=== PATIENT | female | born 1990 | race African-American/Black ===

== ENCOUNTER 2016-10-16 06:42 | Emergency (ER) | payer OTHER ==
[~2016-10-16] VITALS: Ht 167.6 cm; Wt 136.4 kg
[~2016-10-16 06:42] MED LIST: ADVAIR 250/501 DISK IH; ALBUTEROL2.5 MG/3 M IH; AMOXICILLIN875 MG PO; ANAPROX DS550 M1 PO; ANTI-ITCH28.4 GM TP; ATARAX,VISTARIL25 MG PO; ATARAX,VISTARIL50 MG PO; BACTRIM,SEPT1 TABLET PO; CIPRO500 MG PO; CITRATE OF MAG296 ML PO; COLACE100 MG PO; DELTASONE20 M1 PO; DIFLUCAN150 MG PO; DILAUDID2 MG PO; DOXYCYCLINE HY100 MG PO; FLAGYL500 MG PO; FLEXERIL10 MG PO; FLONASE16 G1 BOTH NARES; FLUTICASONE P15.8 ML BOTH NARES; GUAIFENESIN600 MG PO; HYDROCODON-ACE1 EAC7 PO; MOBIC15 MG PO; MOTRIN600 MG PO; MOTRIN800 MG PO; NAPROSYN500 MG PO; NAPROXEN500 MG PO; PEN-VEE K,VEET500 MG PO; PREDNISONE10 MG PO; PREDNISONE20 MG PO; PRILOSEC40 MG PO; PROAIR RESPICL90 MCG IH; PROVENTIL,2.5 MG/3 M IH; ROBITUSSIN AC,T10 ML PO; TRAMADOL HCL50 MG PO; ULTRAM50 MG PO; VENTOLIN HFA18 GM IH; VICODIN,LORT1 TABLET PO; ZITHROMAX Z-PA250 MG PO; ZITHROMAX250 MG PO; ZOFRAN ODT4 MG PO; ZOFRAN4 MG PO
[2016-10-16 08:29] LABS: ADD MIUA? YES; BILIRUBIN NEGATIVE; BLOOD NEGATIVE; COLOR YELLOW ((YELLOW)); GLUCOSE (STRIP) NEGATIVE; KETONES NEGATIVE; LEUKOCYTES NEGATIVE; NITRITE NEGATIVE; PROTEIN (STRIP) NEGATIVE; SPECIFIC GRAVITY 1.015 (1.000-1.030); UROBILINOGEN 0.2 MG/DL (0.2-1.0)
[2016-10-16 08:30] LABS: MCH 28.9 PG (29.0-34.0); MCHC 33.7 G/DL (30.0-36.0); MCV 85.8 FL (83-99); MEAN PLAT.VOLUME 10.4 uM^3 (9.5-12.4); PLATELET COUNT 226 K/uL (156-360); RBC DIS.WIDTH-CV 15.3 % (11.8-14.6); RBC DIS.WIDTH-SD 47.4 % (39-53); RED BLOOD COUNT 4.43 M/uL (3.80-5.20); WHITE BLOOD COUNT 7.4 K/uL (4.1-10.2)
[2016-10-16 08:34] LABS: BACTERIA NONE SEEN /HPF; EPITHELIAL CELLS 1+ /HPF; MUCUS TRACE /LPF; RED BLOOD CELLS 0-5 /HPF (0-5); WHITE BLOOD CELLS 0-5 /HPF (0-5)
[2016-10-16 08:59] LABS: ANION GAP 7 MEQ/L (2-14); CHLORIDE 105 MEQ/L (99-109); POTASSIUM 3.7 MEQ/L (3.7-5.4); SAMPLE HEMOLYSIS CHECK 0; SAMPLE ICTERIC CHECK 0; SAMPLE LIPEMIA CHECK 0; SODIUM 140 MEQ/L (136-147); TOTAL BILIRUBIN 0.2 MG/DL (0.0-1.0)
[2016-10-16 09:04] LABS: ALKALINE PHOSPHATASE 63 IU/L (3-129); GFR ESTIMATE (CALCULATED) > 59 mL/min/; GLUCOSE 93 mg/dL (70-99); LIPASE 36 U/L (1.0-51.0); UREA NITROGEN (BUN) 9 mg/dL (9-23)
[2016-10-16 09:08] LABS: QUANTITATIVE HCG < 4.0 MIU/ML
[2016-10-16] MEDS ORDERED: NAPROSYN500 MG PO (10:46)
[2016-10-16 10:57] VITALS: BP 123/76
[2016-10-19 12:16] LABS: CHLAMYDIA TRACHOMATIS NEGATIVE; NEISSERIA GONORRHOEAE NEGATIVE
== END 2016-10-16 11:14 | disposition home or self-care (01) ==
LOC: EME 06:42
PROVIDERS: Physician Assistant Medical
DX: R10.9 Unspecified abdominal pain (principal); R10.2 Pelvic and perineal pain; J45.909 Unspecified asthma, uncomplicated; F17.200 Nicotine dependence, unspecified, uncomplicated
CPT/HCPCS: 76856; 80053; 81003; 83690; 84702; 85027; 87210; 87491; 87591; 99281; 99284; J1885

== ENCOUNTER 2017-03-14 09:43 | Emergency (ER) | payer OTHER ==
[~2017-03-14] VITALS: Ht 167.6 cm; Wt 132.7 kg
[2017-03-14 10:26] LABS: ADD MIUA? YES; BILIRUBIN NEGATIVE; BLOOD SMALL; COLOR YELLOW ((YELLOW)); GLUCOSE (STRIP) NEGATIVE; KETONES NEGATIVE; LEUKOCYTES TRACE; NITRITE NEGATIVE; PROTEIN (STRIP) 30; SPECIFIC GRAVITY 1.012 (1.000-1.030); UROBILINOGEN 0.2 MG/DL (0.2-1.0)
[2017-03-14 10:32] LABS: BACTERIA RARE /HPF; EPITHELIAL CELLS 1+ /HPF; MUCUS TRACE /LPF; WHITE BLOOD CELLS 0-5 /HPF (0-5)
[2017-03-14 10:58] LABS: HEMATOCRIT 40.5 % (36.0-46.0); MCH 28.8 PG (29.0-34.0); MCHC 33.1 G/DL (30.0-36.0); MCV 87.1 FL (83-99); MEAN PLAT.VOLUME 10.5 uM^3 (9.5-12.4); PLATELET COUNT 240 K/uL (156-360); RBC DIS.WIDTH-CV 14.4 % (11.8-14.6); RED BLOOD COUNT 4.65 M/uL (3.80-5.20); WHITE BLOOD COUNT 9.3 K/uL (4.1-10.2)
[2017-03-14 11:10] LABS: CHLORIDE 103 mEq/L (99-109); POTASSIUM 3.6 mEq/L (3.7-5.4); SODIUM 135 mEq/L (136-147)
[2017-03-14 11:12] LABS: GLUCOSE 150 mg/dL (70-99)
[2017-03-14 11:13] LABS: ANION GAP 10 MEQ/L (2-14)
[2017-03-14 11:16] LABS: GFR ESTIMATE (CALCULATED) > 59 mL/min/
[2017-03-14 11:17] LABS: UREA NITROGEN (BUN) 6 mg/dL (9-23)
[2017-03-14 11:25] LABS: QUANTITATIVE HCG < 4.0 MIU/ML
[2017-03-14] MEDS ORDERED: DELTASONE20 M1 PO (11:34)
[2017-03-14] MEDS ORDERED: BACTRIM,SEPT1 TABLET PO (11:34)
[2017-03-14] MEDS ORDERED: VENTOLIN HFA18 GM IH (11:34)
[2017-03-14 11:48] VITALS: BP 145/115
== END 2017-03-14 11:50 | disposition home or self-care (01) ==
LOC: EME 09:43
PROVIDERS: Nurse Practitioner Family
DX: N39.0 Urinary tract infection, site not specified (principal); J45.901 Unspecified asthma with (acute) exacerbation; F17.200 Nicotine dependence, unspecified, uncomplicated
CPT/HCPCS: 71020; 80048; 81003; 84702; 85027; 93005; 94640; 99281; 99285; J7512

== ENCOUNTER 2017-03-19 11:16 | Emergency (ER) | payer OTHER ==
[~2017-03-19] VITALS: Ht 167.6 cm; Wt 133.8 kg
[2017-03-19 12:23] LABS: ADD MIUA? NO; BILIRUBIN NEGATIVE; BLOOD NEGATIVE; COLOR YELLOW ((YELLOW)); GLUCOSE (STRIP) NEGATIVE; KETONES NEGATIVE; LEUKOCYTES NEGATIVE; NITRITE NEGATIVE; PROTEIN (STRIP) NEGATIVE; SPECIFIC GRAVITY 1.015 (1.000-1.030); UCUL ADDED? NO; UROBILINOGEN 0.2 MG/DL (0.2-1.0)
[2017-03-19 12:35] LABS: HEMATOCRIT 41.7 % (36.0-46.0); MCH 29.2 PG (29.0-34.0); MCHC 33.6 G/DL (30.0-36.0); MCV 87.1 FL (83-99); MEAN PLAT.VOLUME 10.3 uM^3 (9.5-12.4); NRBC (%) 0.1 /100 WBC (0-0); PLATELET COUNT 250 K/uL (156-360); RBC DIS.WIDTH-CV 14.6 % (11.8-14.6); RBC DIS.WIDTH-SD 46.3 % (39-53); RED BLOOD COUNT 4.79 M/uL (3.80-5.20); WHITE BLOOD COUNT 13.5 K/uL (4.1-10.2)
[2017-03-19 12:51] LABS: CHLORIDE 107 mEq/L (99-109); POTASSIUM 4.1 mEq/L (3.7-5.4); SODIUM 141 mEq/L (136-147)
[2017-03-19 12:54] LABS: GLUCOSE 88 mg/dL (70-99)
[2017-03-19 12:55] LABS: ANION GAP 7 MEQ/L (2-14); TOTAL BILIRUBIN 0.2 mg/dL (0.0-1.0)
[2017-03-19 12:57] LABS: ALKALINE PHOSPHATASE 70 IU/L (3-129); GFR ESTIMATE (CALCULATED) > 59 mL/min/
[2017-03-19 12:58] LABS: UREA NITROGEN (BUN) 12 mg/dL (9-23)
[2017-03-19 13:07] LABS: QUANTITATIVE HCG < 4.0 MIU/ML
[2017-03-19] MEDS ORDERED: LEVAQUIN750 MG PO (14:41)
[2017-03-19] MEDS ORDERED: ZOFRAN ODT4 MG PO (14:41)
[2017-03-19] MEDS ORDERED: MOTRIN800 MG PO (14:41)
[2017-03-19 15:00] VITALS: BP 140/88
== END 2017-03-19 15:01 | disposition home or self-care (01) ==
LOC: EME 11:16
PROVIDERS: Nurse Practitioner Family
DX: N30.90 Cystitis, unspecified without hematuria (principal); K76.0 Fatty (change of) liver, not elsewhere classified; F17.200 Nicotine dependence, unspecified, uncomplicated; J45.909 Unspecified asthma, uncomplicated
CPT/HCPCS: 74177; 80053; 81003; 84702; 85027; 87086; 99281; 99284; J1885; J7040

== ENCOUNTER 2017-09-26 15:10 | Emergency (ER) | payer OTHER ==
[~2017-09-26] VITALS: Ht 167.6 cm; Wt 129.1 kg
[~2017-09-26 15:10] MED LIST changes: +LEVAQUIN750 MG PO
[2017-09-26] MEDS ORDERED: MOTRIN800 MG PO (16:48)
[2017-09-26 17:05] VITALS: BP 127/97
== END 2017-09-26 17:06 | disposition home or self-care (01) ==
LOC: EME 15:10
DX: S46.911A Strain of unspecified muscle, fascia and tendon at shoulder and upper arm level, right arm, initial encounter (principal); X50.0XXA Overexertion from strenuous movement or load, initial encounter; M25.521 Pain in right elbow; F17.200 Nicotine dependence, unspecified, uncomplicated; Z88.5 Allergy status to narcotic agent; J45.909 Unspecified asthma, uncomplicated
CPT/HCPCS: 73030; 73080; 99281; 99283

== ENCOUNTER → 2017-11-18 | Outpatient (CLI) | payer OTHER | END | disposition home or self-care (01) | LOC: CDC | DX: Z01.810 Encounter for preprocedural cardiovascular examination (principal); G56.03 Carpal tunnel syndrome, bilateral upper limbs; M25.521 Pain in right elbow; R94.31 Abnormal electrocardiogram [ECG] [EKG] | CPT/HCPCS: 93000 ==

== ENCOUNTER 2017-12-04 02:26 | Observation (INO) | payer OTHER ==
[~2017-12-04] VITALS: Ht 167.6 cm; Wt 140.0 kg
[2017-12-04 02:59] LABS: BASOPHIL (%) 0.1 % (0-1); EOSINOPHIL (%) 0.3 % (0-5); HEMATOCRIT 38.4 % (36.0-46.0); HEMOGLOBIN 13.3 G/DL (11.9-15.5); IMMATURE GRANULOCYTE (%) 0.4 % (0.0-0.7); LYMPHOCYTE (%) 25.2 % (15-42); LYMPHOCYTE COUNT 2.9 K/uL (1.0-2.8); MCH 29.8 PG (29.0-34.0); MCHC 34.6 G/DL (30.0-36.0); MCV 85.9 FL (83-99); MONOCYTE (%) 2.1 % (3-12); MONOCYTE COUNT 0.3 K/uL (0-0.8); NEUTROPHIL (%) 71.9 % (45-76); NEUTROPHIL COUNT 8.4 K/uL (1.8-6.4); PLATELET COUNT 229 K/uL (156-360); RBC DIS.WIDTH-CV 14.6 % (11.8-14.6); RBC DIS.WIDTH-SD 45.9 % (39-53); RED BLOOD COUNT 4.47 M/uL (3.80-5.20); WHITE BLOOD COUNT 11.7 K/uL (4.1-10.2)
[2017-12-04 03:07] LABS: CHLORIDE 103 mEq/L (99-109); POTASSIUM 3.7 mEq/L (3.7-5.4); SODIUM 139 mEq/L (136-147)
[2017-12-04 03:10] LABS: GLUCOSE 154 mg/dL (70-99); TOTAL PROTEIN 6.9 g/dL (6.4-8.3)
[2017-12-04 03:11] LABS: TOTAL BILIRUBIN 0.8 mg/dL (0.0-1.0)
[2017-12-04 03:13] LABS: ALKALINE PHOSPHATASE 57 IU/L (3-129); CREATININE 0.8 mg/dL (0.6-1.3); GFR ESTIMATE (CALCULATED) > 59 mL/min/
[2017-12-04 03:14] LABS: UREA NITROGEN (BUN) 9 mg/dL (9-23)
[2017-12-04 03:15] LABS: AST (GOT) 25 IU/L (2-34)
[2017-12-04 03:16] LABS: ALT (GPT) 31 IU/L (3-49)
[2017-12-04 08:19] VITALS: BP 117/58
[2017-12-04] MEDS ORDERED: ALBUTEROL2.5 MG/3 M IH (10:45)
[2017-12-04] MEDS ORDERED: ATARAX,VISTARIL25 MG PO (10:46)
[2017-12-04 11:14] VITALS: BP 134/57
[2017-12-04] MEDS ORDERED: PREDNISONE10 MG PO (14:36)
== END 2017-12-04 15:04 | disposition home or self-care (01) ==
LOC: EME 02:26 → EDOF 05:30 → ENRESERV 05:44 → 5WEST 08:08
PROVIDERS: Physician Assistant
DX: J45.901 Unspecified asthma with (acute) exacerbation (principal); R09.02 Hypoxemia; D68.9 Coagulation defect, unspecified; R60.0 Localized edema; E66.01 Morbid (severe) obesity due to excess calories; F41.9 Anxiety disorder, unspecified; Z68.41 Body mass index [BMI] 40.0-44.9, adult; F17.200 Nicotine dependence, unspecified, uncomplicated; J02.9 Acute pharyngitis, unspecified; M79.1 Myalgia; R11.2 Nausea with vomiting, unspecified; R10.9 Unspecified abdominal pain; Z88.5 Allergy status to narcotic agent; Z88.6 Allergy status to analgesic agent; Z88.8 Allergy status to other drugs, medicaments and biological substances
CPT/HCPCS: 70360; 70490; 71275; 80053; 85025; 85379; 93970; 94640; 94799; 99202; 99281; 99285; G0378; J1200; J2930; J7030; Q0177; S0028